=== PATIENT | male | born 1980 | race African-American/Black ===

== ENCOUNTER 2021-09-13 11:01 | Emergency (ER) | payer MEDICAID ==
[~2021-09-13] VITALS: Ht 185.4 cm; Wt 86.2 kg
[2021-09-13] MEDS ORDERED: cloNIDine HCL 0.1 MG TAB PO ONE (11:15)
[2021-09-13] MEDS ORDERED: cloNIDine HCL 0.1 MG TAB ONE (11:19)
[2021-09-13 11:30] VITALS: BP 190/109
== END 2021-09-13 12:41 | disposition home or self-care (01) ==
LOC: ER 11:01 → EDBD 11:01 → ER 12:41
DX: I10 Essential (primary) hypertension (principal); I16.0 Hypertensive urgency; F12.10 Cannabis abuse, uncomplicated
CPT/HCPCS: 93005